=== PATIENT | female | born 1960 | race Caucasian/White ===

== ENCOUNTER 2023-07-19 10:47 | Outpatient (CLI) | payer MEDICARE, SELFPAY ==
[2023-07-19 11:31] LABS: Anion Gap 5 mmol/L (8-16); Blood Urea Nitrogen 13 mg/dL (7-17); Carbon Dioxide 30 mmol/L (22-30); Chloride 104 mmol/L (98-107); Estimated Glomerular Filt Rate 50; Glucose 88 mg/dL (65-110); Potassium 4.4 mmol/L (3.4-5.0); Sodium 139 mmol/L (137-145)
== END 2023-07-19 10:48 | disposition home or self-care (01) ==
LOC: ANHSURGERY 11:00
PROVIDERS: Anesthesiology; Visit Provider Urology
DX: Z01.818 Encounter for other preprocedural examination (principal); Z79.899 Other long term (current) drug therapy
CPT/HCPCS: 36415; 80048

== ENCOUNTER 2023-07-22 00:48 | Day surgery (SDC) | payer MEDICARE, SELFPAY ==
[2023-07-17 10:08] VITALS: BMI 40.3
--- NOTE | 2023-07-17 10:39 | SUR.PREOP ---
Report to the Outpatient Waiting Room, entrance under the green pavilion located off [facility], at time 0930 on date 07/22/23. Planned Procedure Time: 1130. Time changes happen often and if your time is changed the preop area will call you the afternoon before. - You and your visitor will be asked to self-screen and do not enter if you have any COVID symptoms. - A mask is optional within the hospital at this time. Patients may have clear liquids (water, carbonated beverages, clear teas, apple juice) until 3 hours prior to surgery with a maximum of 20 ounces. - No food from midnight until time of surgery - Infants may have breast milk until 4 hours before surgery, infant formula 6 hours prior to surgery. - Children will be allowed to drink immediately following surgery. If applicable, please bring a bottle or sippy cup to assist with drinking. Juice, water, soda, and popsicles are readily available. For infants on formula, please bring formula the day of surgery. Pacifiers are allowed. Take the following medications with a SIP of water the morning of surgery: Diltiazem DO NOT STOP ANY OF YOUR OTHER PRESCRIPTION MEDICATIONS PRIOR TO SURGERY ?EXCEPT THE FOLLOWING Medications to discontinue per physician N/A Please no make-up, nail georgian, hairspray, perfume, deodorant, or body powder the day of surgery. No jewelry (including any body piercings) or valuables the day of surgery, leave them at home. Please take a shower or bath the night before, or the morning of, surgery with an antibacterial soap. Wear comfortable, loose fitting clothing. Children are encouraged to wear pajamas. - Jewelry must be removed prior to entering the operating room. Rings and piercings that are not removed may be cut off. - The hospital will not accept responsibility for valuables. - Please leave all valuables, including medications, at home the day of surgery. If you are going home after surgery, a licensed cement mixer driver must drive you home. - NO public transportation without another adult if you receive anesthesia. - We recommend that an adult stay with you for 24 hours following discharge. - We also recommend that you do not drive, make important decision, drink alcoholic beverages, or take any drugs that were not prescribed by your health care provider for at least 24 hours after your discharge time. For Pediatric surgeries, we recommend two adults accompany the child home. Follow any additional instructions given to you from your surgeon. If you or anyone in your household have experienced Covid symptoms in the past week, please notify your surgeon or the nurse liaison at the phone number below for possible testing. Telephone instructions given to ____patient- Brenda and asked if any additional questions and then verbalized understanding. Patient advised to call surgeon office or pre surgery nurse liaison [phone] if any additional questions.
--- NOTE | 2023-07-21 10:21 | P.HP_ITS ---
H&P: HPI History of Present Illness Date/Time: 07/21/23 10:21 Chief Complaint: Removal of InterStim device Narrative: She has an InterStim device in place. She has had it for over a decade. It is at end of service. She no longer requires the device and would like it removed Review of Systems Review of Systems: All systems reviewed & are unremarkable except as noted in HPI and below [facility] Social History Social History Smoking status: Never smoker Second hand tobacco smoke exposure: Yes Substance use: never Living arrangements: with family Spiritual care concerns: No Meds Home Medications and Allergies Home Medications Medication Instructions Recorded Confirmed Type diltiazem HCl 120 mg 120 mg PO DAILY 07/17/23 07/17/23 History capsule,extended release 24 hr furosemide 20 mg tablet See Rx Instructions .Route .COMPLEX 07/17/23 07/17/23 History pantoprazole 40 mg tablet,delayed 40 mg PO DAILY 07/17/23 07/17/23 History release Allergies Allergy/AdvReac Type Severity Reaction Status Date / Time No Known Allergies Allergy Unknown Verified 07/17/23 10:05 Exam Narrative: No acute distress Normal breathing Alert orient x3 Assessment and Plan Assessment and plan (1) Urge incontinence: Code(s): N39.41 - Urge incontinence Status: Acute Assessment and Plan: Desires removal of InterStim device. She understands risks of bleeding, infection, incomplete device removal, wound complications. She agrees to proceed
[2023-07-22] VITALS (7 sets, daily range): BP systolic 119–154; BP diastolic 61–90; PULSE 74–103; RESP 11–16; TEMP 36.4; O2SAT 98–100
--- NOTE | ~2023-07-22 | XR_ITS ---
EXAMINATION: XR stent kub - surgery DATE: 07/22/2023 12:56 INDICATION: Removal of implant verification. TECHNIQUE: Single image of the sacrum obtained during procedure performed by Dr. Miranda. Radiologist was not present for the imaging or procedure. The amount of fluoroscopy time used during this proced ure was 0.2 minutes. COMPARISON: 06/30/2010 FINDINGS: The distal aspect of a right sacral nerve root stimulator lead remains in unchanged position. The pro ximal end of the lead is no longer visualized. Bones are unremarkable. IMPRESSION: 1. Likely retained distal fragment of a right sacral nerve root stimulator lead remains in unchanged position with the more proximal aspect of the lead no longer visualized. Correlate with procedure not e for further detail. Reviewed, dictated and finalized at location B. IMPRESSION: 1. Likely retained distal fragment of a right sacral nerve root stimulator lead remains in unchanged position with the more proximal aspect of the lead no isaiah anthony visualized. Correlate with procedure note for further detail.
--- NOTE | 2023-07-22 04:36 | WPDHPUPDATE1 ---
History and Physical Update Update Date/Time: 07/22/23 04:36 History and Physical has been reviewed, including an updated exam of the patient. There are NO changes in the patient's condition. Risks, benefits, and alternatives have been discussed and questions answered. Patient agrees to proceed with procedure.
--- NOTE | 2023-07-22 08:04 | WPDANESEPPF ---
Anes - Initial Pre Proc Eval Procedure: Operation Date: 07/22/23 11:30 Proposed Procedures p Removal of Neurostimulator Implant - Ray Miranda MD Date/Time: 07/22/23 08:04 Surgeon: Ray Miranda MD Pre Op Diagnosis: urinary urgency Patient Data Age: 63 Gender: F Height: 1.57 m Weight: 100 kg Allergies Allergy/AdvReac Type Severity Reaction Status Date / Time No Known Allergies Allergy Unknown Verified 07/22/23 10:03 Home Medications Medication Instructions Recorded Confirmed Type diltiazem HCl 120 mg 120 mg PO DAILY 07/17/23 07/17/23 History capsule,extended release 24 hr furosemide 20 mg tablet See Rx Instructions .Route .COMPLEX 07/17/23 07/17/23 History pantoprazole 40 mg tablet,delayed 40 mg PO DAILY 07/17/23 07/17/23 History release Patient hx anesthesia problems: none Family hx anesthesia problems: none Results Review: All pre-operative results and documents have been reviewed as part of the pre-operative evaluation. [facility] Past Medical History Medical History (Updated 07/22/23 @ 11:07 by Wilmer Serrano DO) Asthma CHF (congestive heart failure) Cirrhosis GERD (gastroesophageal reflux disease) Hypertension Osteoarthritis Surgical History Surgical History (Updated 07/22/23 @ 08:05 by Wilmer Serrano DO) History of appendectomy History of cholecystectomy History of hysterectomy Social History Social History Smoking status: Never smoker Second hand tobacco smoke exposure: Yes Substance use: never Living arrangements: with family Spiritual care concerns: No Anes - Eval Final PreProcedure Day of Procedure 07/22/23 08:04 Patient weight: morbidly obese Heart: regular rate and rhythm Lungs: clear to auscultation Airway: Mallampati scale class III Neurological: alert and oriented Last oral intake: >/= 8 hours ASA classification: IV Emergent: no Anesthetic plan: proceed Anesthesia type and monitoring: general GIVS and standard monitoring Results Review: All pre-operative results and documents have been reviewed as part of the pre-operative evaluation. Informed Consent: The patient's anesthetic plan and its attendant risks and benefits were discussed with the patient/family/POA. Questions were solicited and answers provided to the satisfaction of the patient/family/POA.
[2023-07-22] MEDS: LACTATED RINGERS 1,000 ML 30 ML IV CONT ×2 (10:03→14:15)
[2023-07-22] MEDS: ceFAZolin 2 GM/D5W 50 ML 2 GM/50 ML BAG IVPB (12:25)
[2023-07-22] MEDS: BUPIVACAINE/EPINEPHRINE 0.5% 50 ML VIAL 30 ML INFILTRATE (12:42)
--- NOTE | 2023-07-22 13:13 | W.PM.PROC2 ---
Procedure Note - Detailed Date of Procedure 07/22/23 Pre-op Diagnosis urinary urgency Urge incontinence Post-op Diagnosis Same Procedure Performed Removed with sacral lead. Removal of implantable pulse generator Surgeon Ray Miranda MD Anesthesia MAC and Local Indications This is a woman with InterStim device. She would like it removed. Battery is at end of service. She no longer needs the device. She understands risks of bleeding, infection, wound complications, incomplete device removal. She agrees to proceed Description of Procedure She was correctly identified. Informed consent obtained. She from the operating room. She was given monitored anesthesia care. She was placed in prone position. Low back and buttock prepped draped sterile fashion. Time-out performed. I anesthetized the skin over the pulse generator. I incised the skin. I located the pulse generator. It was explanted. I removed the capsule around the pulse generator. I then located the sacral lead on fluoroscopy. I incised the skin after anesthetizing it. I located the sacral lead. I removed in its entirety. I irrigated all wounds. I assured hemostasis. I closed subcutaneous tissues with 2-0 Vicryl. Skin with 4-0 Vicryl. Glue was applied. She was awakened transferred to PACU in stable condition. Estimated Blood Loss 5 Drains No Packing No Pathology None sent Complications No immediate complications Condition Stable Disposition PACU
[2023-07-22] MEDS: oxyCODONE HCL (*CRX) 5 MG TAB IR PO (14:05)
--- NOTE | 2023-07-22 14:46 | SUR.PHASEII ---
PATIENT UNSTEADY ON HER FEET; C/O DIZZINESS. TRANSPORTED TO BATHROOM VIA WHEELCHAIR; IVF'S RESUMED.
== END 2023-07-22 15:13 | disposition home or self-care (01) ==
PROVIDERS: Visit Provider Urology
PROC: (CPT 64585; principal; 2023-07-22 11:30)
DX: Z45.42 Encounter for adjustment and management of neurostimulator (principal); N39.41 Urge incontinence; J45.909 Unspecified asthma, uncomplicated; I11.0 Hypertensive heart disease with heart failure; I50.9 Heart failure, unspecified; K74.60 Unspecified cirrhosis of liver; E66.01 Morbid (severe) obesity due to excess calories; Z68.41 Body mass index [BMI] 40.0-44.9, adult; Z98.890 Other specified postprocedural states; K21.9 Gastro-esophageal reflux disease without esophagitis; Z90.49 Acquired absence of other specified parts of digestive tract
CPT/HCPCS: 64595; 64585; A9270; J0690; J1100; J2250; J2405; J2704; J3010; J7120